=== PATIENT | male | born 1960 | race Hispanic/Latino ===

== ENCOUNTER 2018-02-06 12:03 | Inpatient (IN) | payer OTHER, SELFPAY ==
[2018-02-06 13:49] LABS: #Eosinphils 0.2 thou/uL (0.0-0.7); #Lymphocytes 1.5 thou/uL (1.20-3.40); #Monocytes 0.7 thou/uL (0.11-0.59); #Neutrophils 6.2 thou/uL (1.40-6.50); %Basophils 0.4 % (0.0-1.0); %Eosinophils 1.9 % (0.0-10.0); %Lymphocytes 17.7 % (21.0-51.0); %Monocytes 7.8 % (0.0-10.0); %Neutrophils 72.2 % (42.0-75.0); Hemoglobin 16.4 g/dL (14.0-18.0); Mean Corpuscular HGB CONC 32.6 g/dL (32.0-36.0); Mean Corpuscular Hemoglobin 29.3 pg (27.0-31.0); Mean Platelet Volume 8.5 fL (7.4-10.4); Platelet Count 286 thou/uL (130-400); RBC Distribution Width 12.1 % (11.5-14.5); White Blood Cell (WBC) Count 8.6 thou/uL (4.8-10.8)
[2018-02-06 13:50] LABS: Bilirubin Negative (Negative); Blood, Urine Trace (Negative); Clarity CLEAR (Clear); Glucose, Urine (Dipstick) >=1000 mg/dL (Negative); Leukocyte Small (Negative); Nitrite Negative (Negative); Protein, Urine (Dipstick) 30 mg/dL (Neg-Trace); Specific Gravity, Urine 1.039 (1.002-1.036); Urobilinogen 0.2 mg/dL (0.2-1.0)
[2018-02-06 14:01] LABS: Bacteria/HPF None Seen HPF (None Seen); Hyaline Casts/LPF 0-3 HYALINE CAST LPF (0-3 Hyaline); Squamous Epithelial 0-3 HPF (0-3); WBC/HPF 21-50 HPF (0-3)
[2018-02-06 14:09] LABS: ALT (SGPT) 16 U/L (8-55); AST (SGOT) 13 U/L (5-34); Albumin 4.1 g/dL (3.5-5.0); Alkaline Phosphatase 200 U/L (40-150); Anion Gap 14 mmol/L (10-20); BUN (Urea Nitrogen) 18 mg/dL (8.4-25.7); Bilirubin, Total 0.5 mg/dL (0.2-1.2); Calc. Creatinine Clearance 0 mL/min (70-130); Calcium 9.9 mg/dL (7.8-10.44); Carbon Dioxide 28 mmol/L (22-29); Chloride 96 mmol/L (98-107); Estimated GFR-MDRD 82; Globulin 3.8 g/dL (2.4-3.5); Glucose 468 mg/dL (70-105); Potassium 4.5 mmol/L (3.5-5.1); Protein, Total 7.9 g/dL (6.0-8.3); Sodium 133 mmol/L (136-145)
[2018-02-06] MEDS ORDERED: Piperacillin/Tazobactam 4.5 GM VIAL ONE (14:30)
--- NOTE | 2018-02-06 14:50 | RAD ---
2 VIEWS LEFT TIBIA AND FIBULA: Date: 02/06/18 COMPARISON: None. HISTORY: Left leg pain and swelling. Evaluate for osteomyelitis. Open wound on the proximal tibia. FINDINGS: Two views of the left tibia/fibula shows no evidence of acute fracture or dislocation. There is an an terior wound along the mid portion of the left lower leg. No underlying osseous erosions are seen to suggest osteomyelitis. IMPRESSION: No evidence of osteomyelitis. POS: [facility]
--- NOTE | 2018-02-06 14:52 | RAD ---
3 VIEWS RIGHT FOOT: Date: 02/06/18 COMPARISON: None. HISTORY: Right foot injury with pain. FINDINGS: Three views of the right foot show questionable lucency extending through the distal phalanges of the third, fourth, and fifth toes. This could also be artifactual and represent dermal bárbara for this pa tient. Mild soft tissue swelling is seen. IMPRESSION: Possible distal phalanges fractures of the third, fourth, and fifth toes. Correlate with point tender ness in this location. POS: [facility]IR[facility]
[2018-02-06] MEDS ORDERED: Clindamycin/D5W 900 mg/50 ml Premix Bag ONE (15:40)
[2018-02-06 15:45] LABS: Hemoglobin A1c 12.7 % (4.0-6.0)
[2018-02-06] MEDS ORDERED: Ondansetron ODT 4 MG TAB SL PRN (17:12)
[2018-02-06] MEDS ORDERED: HYDROcodone/Acetaminophen 5/325 mg Tablet PO PRN ×4 (17:12→17:25)
[2018-02-06] MEDS ORDERED: Acetaminophen 325 MG TAB PO PRN ×2 (17:12→17:17)
[2018-02-06] MEDS ORDERED: Ondansetron PF 4 MG/2 ML Vial IVP PRN ×2 (17:12→17:17)
[2018-02-06 17:13] VITALS: BMI 25.9
[2018-02-06] MEDS ORDERED: Adacel (T-DAP) 0.5 ML VIAL IM ONE (17:14)
[2018-02-06] MEDS ORDERED: Calcium Carbonate 500 MG ChewTAB PO PRN (17:17)
[2018-02-06] MEDS ORDERED: Dextrose 50% Abboject 50 ML SYRINGE SLOW IVP PRN (17:17)
[2018-02-06] MEDS ORDERED: Senokot S 8.6-50 MG TAB PO PRN (17:17)
[2018-02-06] MEDS ORDERED: Dextrose 5% in Water 1,000 ML IV PRN (17:17)
[2018-02-06] MEDS ORDERED: Ondansetron ODT 4 MG TAB PO PRN (17:17)
[2018-02-06] MEDS ORDERED: hydrALAZINE 20 MG/ML VIAL SLOW IVP PRN (17:27)
[2018-02-06] MEDS ORDERED: Enalaprilat Dihydrate 1.25 MG/ML VIAL SLOW IVP PRN (17:27)
[2018-02-06] MEDS ORDERED: Aspirin 81 mg Enteric Coated Tablet PO SCH (17:45)
--- NOTE | 2018-02-06 18:01 | HP ---
DATE OF ADMISSION: 02/06/2018 PRIMARY CARE PHYSICIAN: None. CHIEF COMPLAINT: Right foot ulceration. HISTORY OF PRESENT ILLNESS: The patient is a 57-year-old male with no past medical history who prese nted to the emergency room with above complaints. The patient is Nepalese-speaking only and history w as obtained with the help of public health teacher. Approximately 4 weeks ago, the patient was seen at urgent care for a spider bite on his left cao. T he wound gradually increased in size. It is now approximately 2 inch x 2 inch with dry eschar. He d enies any pain around this area. Over the last 4-5 days, the patient noticed discoloration of all the 5 toes of the right foot. The d iscoloration gradually got worse for which he went to the urgent care for evaluation. He denies any pain, fever, chills, night sweats or injuries. In the emergency room, his initial vital signs showed temperature 97.7, respirations 16, pulse of 81, blood pressure 196/99 with O2 saturation of 100% on room air. He received vancomycin, clindamycin, and Zosyn in the emergency room. PAST MEDICAL HISTORY: Reviewed with the patient and none. PAST SURGICAL HISTORY: Reviewed with the patient and none. ALLERGIES: No known drug allergies. CURRENT MEDICATIONS: Reviewed with the patient and none. SOCIAL HISTORY: Patient currently lives at home with his family. The daughter is at the bedside. N o smoking, alcohol or drug use. FAMILY HISTORY: Negative for heart disease. REVIEW OF SYSTEMS: The following complete review of systems was negative, unless otherwise mentioned in the HPI or below: Constitutional: Weight loss or gain, ability to conduct usual activities. Skin: Rash, itching. Eyes: Double vision, pain. ENT/Mouth: Nose bleeding, neck stiffness, pain, tenderness. Cardiovascular: Palpitations, dyspnea on exertion, orthopnea. Respiratory: Shortness of breath, wheezing, cough, hemoptysis, fever or night sweats. Gastrointestinal: Poor appetite, abdominal pain, heartburn, nausea, vomiting, constipation, or diarrhea. Genitourinary: Urgency, frequency, dysuria, nocturia. Musculoskeletal: Pain, swelling. Neurologic/Psychiatric: Anxiety, depression. Allergy/Immunologic: Skin rash, bleeding tendency. PHYSICAL EXAMINATION: VITAL SIGNS: As discussed above. GENERAL: A 57-year-old male, in no apparent distress. HEENT: Head atraumatic, normocephalic. Sclerae are anicteric. Moist mucous membrane. No oral lesi on. NECK: Supple, no JVD, no carotid bruit. LUNGS: Clear to auscultation bilaterally. No wheezing, rales or rhonchi. HEART: S1, S2 present. Regular rate and rhythm. No murmur, rubs, or gallops appreciated. ABDOMEN: Soft, nontender, bowel sounds present. EXTREMITIES: There is diffuse swelling with erythema of the right foot. There was a 3 x 2 cm black discolored area over the right first toe. There is also 2 x 1 cm black discolored tissue over the ri ght fourth toe. There was diffuse maceration of the skin on all the toes of the right foot. There w as no significant drainage or pain on palpation. SKIN: As discussed above. LYMPH NODES: No palpable lymph nodes in the neck. PERIPHERAL VASCULAR: Radial pulses palpable bilaterally. MUSCULOSKELETAL: No joint swelling or tenderness. LABORATORY FINDINGS: CBC showed WBC 8.6 with hemoglobin 16.4, hematocrit 50.3, platelet count 286. ESR of 15. CRP was 9.57, blood glucose of 468. Sodium 133, potassium 4.5, chloride 96, bicarbonate 28, BUN 18, creatinine 0.95. Hemoglobin A1c 12.7. Urinalysis showed 21-50 wbc's without any bacteri a. Telemetry monitoring by my review showed sinus rhythm. X-ray of the fourth and tibia and fibula by m y review was negative for osteomyelitis. IMPRESSION: 1. Right diabetic foot infection. 2. Recent spider bite over the left leg with 4 x 4 cm unstageable ulcer. 3. New onset diabetes mellitus type 2 with A1c 12.7. 4. Hypertension with hypertensive urgency. 5. Dehydration. 6. Urinary tract infection. 7. Elevated inflammatory markers. 8. Hyponatremia. PLAN: The patient will be monitored on the medical floor. We will start him on insulin sliding scal e, vancomycin and Zosyn. We will keep him n.p.o. past midnight for possible surgical debridement. C onsult dietitian for new diabetes. IV fluids. Plan of care was discussed with the patient and the family in detail, they stated understanding.
[2018-02-06] MEDS: Sodium Chloride 0.9% 1,000 ML IV SCH (18:06)
[2018-02-06] MEDS: Insulin Regular 300 UNITS/3 ML VIAL SC PRN ×2 (18:07→21:19)
[2018-02-06 18:09] LABS: Troponin I Less than 0.010 ng/mL (< 0.028)
[2018-02-06] MEDS ORDERED: Lisinopril 10 MG TAB PO SCH (21:00)
[2018-02-06] MEDS ORDERED: Heparin 5,000 UNITS/ML VIAL SC SCH (21:00)
[2018-02-06] MEDS ORDERED: NPH, Human Insulin Isophane 300 UNIT/3 ML VIAL SC SCH (21:00)
[2018-02-06] MEDS: Piperacillin/Tazobactam 3.375 GM in Sodium Chloride 0.9% 100 ML IVPB SCH (21:19)
[2018-02-07] MEDS: Piperacillin/Tazobactam 3.375 GM in Sodium Chloride 0.9% 100 ML IVPB SCH (01:57)
[2018-02-07 02:47] VITALS: TEMP 98.1
[2018-02-07] MEDS: Insulin Regular 300 UNITS/3 ML VIAL SC PRN ×2 (03:38→06:17)
[2018-02-07 04:58] LABS: #Eosinphils 0.3 thou/uL (0.0-0.7); #Lymphocytes 1.4 thou/uL (1.20-3.40); #Monocytes 0.6 thou/uL (0.11-0.59); #Neutrophils 4.2 thou/uL (1.40-6.50); %Basophils 0.4 % (0.0-1.0); %Eosinophils 4.3 % (0.0-10.0); %Lymphocytes 21.5 % (21.0-51.0); %Neutrophils 64.7 % (42.0-75.0); Hemoglobin 14.4 g/dL (14.0-18.0); Mean Corpuscular HGB CONC 34.1 g/dL (32.0-36.0); Mean Corpuscular Hemoglobin 30.4 pg (27.0-31.0); Mean Platelet Volume 8.1 fL (7.4-10.4); Platelet Count 252 thou/uL (130-400); Red Blood Cell (RBC) Count 4.74 mill/uL (4.70-6.10); White Blood Cell (WBC) Count 6.5 thou/uL (4.8-10.8)
[2018-02-07] MEDS ORDERED: Vancomycin HCl 1 GM in Premix Bag 1 BAG IVPB SCH (05:00)
[2018-02-07 05:14] LABS: Anion Gap 11 mmol/L (10-20); BUN (Urea Nitrogen) 18 mg/dL (8.4-25.7); Calc. Creatinine Clearance 107 mL/min (70-130); Calcium 8.8 mg/dL (7.8-10.44); Carbon Dioxide 24 mmol/L (22-29); Chloride 101 mmol/L (98-107); Estimated GFR-MDRD Greater than 90; Glucose 330 mg/dL (70-105); Magnesium 1.8 mg/dL (1.6-2.6); Potassium 4.1 mmol/L (3.5-5.1); Sodium 132 mmol/L (136-145)
[2018-02-07 05:32] VITALS: BP 183/94
[2018-02-07] MEDS: Sodium Chloride 0.9% 1,000 ML IV SCH (06:14)
[2018-02-07] MEDS ORDERED: Saccharomyces boulardii 250 MG CAP PO SCH (09:00)
[2018-02-07] MEDS ORDERED: Aspirin 81 mg Enteric Coated Tablet PO SCH (09:00)
--- NOTE | 2018-02-08 07:20 | DIS ---
The patient left against medical advice on 02/07/2018. BRIEF HOSPITAL COURSE: The patient is a 57-year-old male with no past medical history, who presented to the emergency room with discoloration of the toes of the right foot. Please refer to the history and physical for further details. The patient was admitted to the hospital with a diagnosis of right diabetic foot infection as well as new onset diabetes mellitus, type 2, with A1c of 12.7. He was started on vancomycin, Zosyn, and was kept n.p.o. for surgical evaluation. However, the patient signed against medical advice. He unders tands the risks not limited to life-threatening complications including sepsis, , and losing his limb. He stated understanding. FINAL DIAGNOSES: 1. Right foot diabetic infection. 2. Recent spider bite over the left leg, measuring 4 x 4 cm, unstageable ulcer. 3. New onset diabetes mellitus, type 2 with A1c 12.7. 4. Hypertension with hypertensive urgency. 5. Dehydration. 6. Urinary tract infection. 7. Hyponatremia. 8. Elevated inflammatory markers. The patient also refused insulin during this hospital stay.
== END 2018-02-07 09:38 | disposition left against medical advice (07) | DRG 638 ==
LOC: ERS 12:03 → T4-B 15:38
PROVIDERS: ADMIT Internal Medicine; ATTEND Internal Medicine
DX: E11.628 Type 2 diabetes mellitus with other skin complications (principal); N39.0 Urinary tract infection, site not specified; E87.1 Hypo-osmolality and hyponatremia; L03.115 Cellulitis of right lower limb; E11.621 Type 2 diabetes mellitus with foot ulcer; T63.301D Toxic effect of unspecified spider venom, accidental (unintentional), subsequent encounter; I10 Essential (primary) hypertension; I16.0 Hypertensive urgency; E86.0 Dehydration; E11.65 Type 2 diabetes mellitus with hyperglycemia
CPT/HCPCS: 36415; 36416; 80048; 80053; 81003; 81015; 83036; 83605; 83735; 84484; 85025; 85652; 86140; 87040; 87086; 90715; 93005; 93010; 96365; 96367; 96375; J1644; J1815; J2543; J3370; J3490; J7050

== ENCOUNTER 2024-01-31 05:57 | Inpatient (IN) | payer OTHER, SELFPAY ==
[2024-01-31] MEDS ORDERED: Dextrose 10% in Water 250 ML ONE (06:05)
[2024-01-31 06:10] LABS: #Basophils 0.12 10x3/uL (0.0-0.2); %Basophils 1.3 % (0.0-1.0); %Eosinophils 5.5 % (0.0-10.0); %Lymphocytes 29.9 % (21.0-51.0); %Neutrophils 54.1 % (42.0-75.0); Hematocrit 44.7 % (42.0-52.0); Hemoglobin 14.5 g/dL (14.0-18.0); Mean Corpuscular HGB CONC 32.4 g/dL (32.0-36.0); Mean Corpuscular Hemoglobin 30.9 pg (27.0-31.0); Mean Corpuscular Volume 95.1 fL (78.0-98.0); Mean Platelet Volume 9.9 fL (7.4-10.4); Platelet Count 316 10x3/uL (130-400); RBC Distribution Width 13.9 % (11.5-14.5)
[2024-01-31 06:37] LABS: Troponin I 0.014 ng/mL (< 0.028)
[2024-01-31 06:45] LABS: ALT (SGPT) 18 U/L (8-55); AST (SGOT) 21 U/L (5-34); Albumin 3.6 g/dL (3.4-4.8); Alkaline Phosphatase 102 U/L (40-110); Anion Gap 19 mmol/L (10-20); BUN (Urea Nitrogen) 41 mg/dL (8.4-25.7); Bilirubin, Total 0.3 mg/dL (0.2-1.2); Calc. Creatinine Clearance 0 mL/min (70-130); Calcium 8.7 mg/dL (7.8-10.44); Carbon Dioxide 21 mmol/L (23-31); Chloride 100 mmol/L (98-107); Estimated GFR 9; Globulin 4.1 g/dL (2.4-3.5); Glucose 32 mg/dL (80-115); Potassium 6.4 mmol/L (3.5-5.1); Protein, Total 7.7 g/dL (5.8-8.1); Sodium 134 mmol/L (136-145)
[2024-01-31] MEDS ORDERED: Ondansetron ODT 4 MG TAB PO PRN (08:46)
[2024-01-31] MEDS ORDERED: Guaifenesin DM 100-10/5 ML UDCUP PO PRN (08:52)
[2024-01-31] MEDS ORDERED: Dextrose 50% Abboject 50 ML SYRINGE SLOW IVP PRN (09:54)
[2024-01-31] MEDS ORDERED: Glucagon 1 MG/ML KIT IM PRN (09:54)
[2024-01-31] MEDS ORDERED: Dextrose 5% in Water 1,000 ML IV PRN (09:54)
[2024-01-31 10:35] LABS: Anion Gap 19 mmol/L (10-20); BUN (Urea Nitrogen) 41 mg/dL (8.4-25.7); Calc. Creatinine Clearance 0 mL/min (70-130); Calcium 8.5 mg/dL (7.8-10.44); Carbon Dioxide 21 mmol/L (23-31); Chloride 102 mmol/L (98-107); Estimated GFR 8; Glucose 83 mg/dL (80-115); Potassium 7.6 mmol/L (3.5-5.1); Sodium 134 mmol/L (136-145)
[2024-01-31 10:46] LABS: Hemoglobin A1c 4.4 % (4.0-6.0)
[2024-01-31 10:48] LABS: HBSAB Concentration 605.98 mIU/mL; HBsAg Index 0.32 S/CO (0-0.99); Hep B Core Total Ab NONREACTIVE (NonReactive); Hep B Surf AB REACTIVE (NonReactive); Hep B Surf Ag NONREACTIVE S/CO (NonReactive); Hep C IgG Ab NONREACTIVE S/CO (NonReactive); Hep C Index 0.09 S/CO (0-0.79)
[2024-01-31] MEDS: hydrALAZINE 20 MG/ML VIAL SLOW IVP PRN (16:25)
[2024-01-31 16:30] VITALS: BMI 28.3
[2024-01-31] MEDS: Sodium Chloride 77 MEQ in Dextrose 10% in Water 1,000 ML IV SCH (17:41)
[2024-01-31] MEDS: Acetaminophen/Codeine 30-300mg Tablet PO PRN (21:18)
[2024-02-01 05:53] LABS: #Basophils 0.09 10x3/uL (0.0-0.2); %Basophils 1.2 % (0.0-1.0); %Eosinophils 4.8 % (0.0-10.0); %Lymphocytes 17.1 % (21.0-51.0); %Monocytes 9.1 % (0.0-10.0); %Neutrophils 67.7 % (42.0-75.0); Hematocrit 42.5 % (42.0-52.0); Hemoglobin 13.9 g/dL (14.0-18.0); Mean Corpuscular HGB CONC 32.7 g/dL (32.0-36.0); Mean Corpuscular Hemoglobin 31.3 pg (27.0-31.0); Mean Corpuscular Volume 95.7 fL (78.0-98.0); Platelet Count 283 10x3/uL (130-400); RBC Distribution Width 14.3 % (11.5-14.5); Red Blood Cell (RBC) Count 4.44 mill/uL (4.70-6.10)
[2024-02-01 06:18] LABS: ALT (SGPT) 15 U/L (8-55); AST (SGOT) 16 U/L (5-34); Alkaline Phosphatase 84 U/L (40-110); Anion Gap 15 mmol/L (10-20); BUN (Urea Nitrogen) 27 mg/dL (8.4-25.7); Bilirubin, Total 0.3 mg/dL (0.2-1.2); Calc. Creatinine Clearance 15 mL/min (70-130); Calcium 8.3 mg/dL (7.8-10.44); Carbon Dioxide 23 mmol/L (23-31); Chloride 100 mmol/L (98-107); Estimated GFR 12; Globulin 3.4 g/dL (2.4-3.5); Glucose 122 mg/dL (80-115); Potassium 6.2 mmol/L (3.5-5.1); Protein, Total 6.4 g/dL (5.8-8.1); Sodium 132 mmol/L (136-145)
[2024-02-01] MEDS: Ondansetron PF 4 MG/2 ML Vial IVP PRN (07:24)
[2024-02-01] MEDS: Insulin Regular, Human 100 UNIT/ML 10 ML VIAL IVP SCH (07:42)
[2024-02-01] MEDS: Albuterol 2.5 MG (3 mL) NEB NEB SCH (07:43)
[2024-02-01] MEDS: Dextrose 50% Abboject 50 ML SYRINGE SLOW IVP SCH (07:43)
[2024-02-01] MEDS: LOKELMA 10 GM PACKET PO SCH (07:45)
[2024-02-01 10:29] LABS: Anion Gap 15 mmol/L (10-20); BUN (Urea Nitrogen) 27 mg/dL (8.4-25.7); Calc. Creatinine Clearance 14 mL/min (70-130); Calcium 8.3 mg/dL (7.8-10.44); Carbon Dioxide 22 mmol/L (23-31); Chloride 99 mmol/L (98-107); Estimated GFR 11; Glucose 185 mg/dL (80-115); Potassium 4.8 mmol/L (3.5-5.1); Sodium 131 mmol/L (136-145)
[2024-02-01] MEDS: Promethazine HCl 25 MG in Sodium Chloride 0.9% 50 ML IVPB PRN (11:49)
[2024-02-01] MEDS: Insulin Lispro 100 UNIT/ML 10 ML VIAL SC PRN (11:49)
[2024-02-01] MEDS: NIFEdipine XL 60 MG ER.TAB PO SCH (15:58)
[2024-02-01] MEDS: Dextrose 5 % And 0.9 % NaCl 1,000 ML IV SCH (16:10)
[2024-02-02 08:35] LABS: #Basophils 0.08 10x3/uL (0.0-0.2); %Eosinophils 6.2 % (0.0-10.0); %Lymphocytes 21.5 % (21.0-51.0); %Neutrophils 62.3 % (42.0-75.0); Hematocrit 37.7 % (42.0-52.0); Hemoglobin 12.5 g/dL (14.0-18.0); Mean Corpuscular HGB CONC 33.2 g/dL (32.0-36.0); Mean Corpuscular Hemoglobin 31.1 pg (27.0-31.0); Mean Corpuscular Volume 93.8 fL (78.0-98.0); Mean Platelet Volume 10.1 fL (7.4-10.4); Platelet Count 254 10x3/uL (130-400); Red Blood Cell (RBC) Count 4.02 mill/uL (4.70-6.10)
[2024-02-02 08:56] LABS: Anion Gap 15 mmol/L (10-20); BUN (Urea Nitrogen) 36 mg/dL (8.4-25.7); Calc. Creatinine Clearance 10 mL/min (70-130); Calcium 8.3 mg/dL (7.8-10.44); Carbon Dioxide 23 mmol/L (23-31); Chloride 96 mmol/L (98-107); Estimated GFR 8; Glucose 106 mg/dL (80-115); Potassium 5.7 mmol/L (3.5-5.1); Sodium 128 mmol/L (136-145)
[2024-02-02] MEDS ORDERED: Heparin 10,000 UNITS/ 10 ML VIAL ONE (08:57)
[2024-02-02] MEDS: NIFEdipine XL 60 MG ER.TAB PO SCH (11:53)
[2024-02-02] MEDS: NIFEdipine XL 30 MG ER.TAB PO SCH (18:09)
[2024-02-02] MEDS: Melatonin 3 MG TAB PO PRN (21:03)
[2024-02-03 05:24] LABS: #Basophils 0.08 10x3/uL (0.0-0.2); %Lymphocytes 16.5 % (21.0-51.0); %Monocytes 9.7 % (0.0-10.0); %Neutrophils 64.5 % (42.0-75.0); Hematocrit 37.1 % (42.0-52.0); Hemoglobin 12.2 g/dL (14.0-18.0); Mean Corpuscular HGB CONC 32.9 g/dL (32.0-36.0); Mean Corpuscular Volume 94.2 fL (78.0-98.0); Mean Platelet Volume 9.9 fL (7.4-10.4); Platelet Count 245 10x3/uL (130-400); RBC Distribution Width 13.8 % (11.5-14.5); Red Blood Cell (RBC) Count 3.94 mill/uL (4.70-6.10)
[2024-02-03 05:47] LABS: Anion Gap 16 mmol/L (10-20); BUN (Urea Nitrogen) 30 mg/dL (8.4-25.7); Calc. Creatinine Clearance 11 mL/min (70-130); Calcium 8.3 mg/dL (7.8-10.44); Carbon Dioxide 24 mmol/L (23-31); Chloride 100 mmol/L (98-107); Estimated GFR 9; Glucose 79 mg/dL (80-115); Potassium 5.9 mmol/L (3.5-5.1); Sodium 134 mmol/L (136-145)
[2024-02-03] MEDS ORDERED: Heparin 10,000 UNITS/ 10 ML VIAL ONE (08:50)
[2024-02-03] MEDS ORDERED: Fioricet 325/50/40 mg Tablet PO PRN (08:54)
[2024-02-03] MEDS: NIFEdipine XL 90 MG ER.TAB PO SCH (13:19)
[2024-02-03] MEDS: LOKELMA 10 GM PACKET PO SCH (18:07)
[2024-02-04 05:52] LABS: #Basophils 0.09 10x3/uL (0.0-0.2); %Basophils 1.1 % (0.0-1.0); %Eosinophils 6.1 % (0.0-10.0); %Lymphocytes 15.3 % (21.0-51.0); %Monocytes 10.5 % (0.0-10.0); %Neutrophils 66.8 % (42.0-75.0); Hematocrit 39.2 % (42.0-52.0); Hemoglobin 13.3 g/dL (14.0-18.0); Mean Corpuscular HGB CONC 33.9 g/dL (32.0-36.0); Mean Corpuscular Volume 91.4 fL (78.0-98.0); Mean Platelet Volume 10.3 fL (7.4-10.4); Platelet Count 263 10x3/uL (130-400); RBC Distribution Width 13.9 % (11.5-14.5); Red Blood Cell (RBC) Count 4.29 mill/uL (4.70-6.10)
[2024-02-04 06:24] LABS: Anion Gap 16 mmol/L (10-20); BUN (Urea Nitrogen) 26 mg/dL (8.4-25.7); Calc. Creatinine Clearance 16 mL/min (70-130); Calcium 8.3 mg/dL (7.8-10.44); Carbon Dioxide 26 mmol/L (23-31); Chloride 100 mmol/L (98-107); Estimated GFR 13; Glucose 98 mg/dL (80-115); Potassium 4.8 mmol/L (3.5-5.1); Sodium 137 mmol/L (136-145)
[2024-02-04 08:14] VITALS: BP 188/85
[2024-02-04 08:48] VITALS: TEMP 98.3
== END 2024-02-04 13:15 | disposition home or self-care (01) | DRG 640 ==
LOC: ERS 05:57 → T4-A 08:59 → OBSVTOIN 02-01 10:39
PROVIDERS: ADMIT Internal Medicine; ATTEND Internal Medicine
PROC: 5A1D70Z Performance of Urinary Filtration, Intermittent, Less than 6 Hours Per Day (ICD-10-PCS; principal; 2024-02-01)
DX: E87.5 Hyperkalemia (principal); N18.6 End stage renal disease; I12.0 Hypertensive chronic kidney disease with stage 5 chronic kidney disease or end stage renal disease; E11.649 Type 2 diabetes mellitus with hypoglycemia without coma; E87.1 Hypo-osmolality and hyponatremia; E11.22 Type 2 diabetes mellitus with diabetic chronic kidney disease; Z99.2 Dependence on renal dialysis; Z98.890 Other specified postprocedural states; D63.1 Anemia in chronic kidney disease
CPT/HCPCS: 36415; 36416; 70450; 71045; 80048; 80053; 83036; 84443; 84484; 85025; 86704; 86706; 86803; 87340; 93005; 94640; 96375; 96376; G0378; J0360; J1644; J1815; J2405; J2550; J7042; J7611; J7999

== ENCOUNTER 2024-04-16 08:51 | Inpatient (IN) | payer MEDICARE, SELFPAY ==
[~2024-04-16 08:51] MED LIST: Iopamidol-370 76% 500 ML MDV (1 ML CHARGE) ONE
[2024-04-16] MEDS ORDERED: Dextrose 50% Abboject 50 ML SYRINGE ONE (09:00)
[2024-04-16 09:39] LABS: #Basophils 0.03 10x3/uL (0.0-0.2); %Basophils 0.3 % (0.0-1.0); %Eosinophils 1.1 % (0.0-10.0); %Monocytes 6.6 % (0.0-10.0); %Neutrophils 84.6 % (42.0-75.0); Hematocrit 29.3 % (42.0-52.0); Hemoglobin 9.5 g/dL (14.0-18.0); Mean Corpuscular HGB CONC 32.4 g/dL (32.0-36.0); Mean Corpuscular Hemoglobin 31.6 pg (27.0-31.0); Mean Corpuscular Volume 97.3 fL (78.0-98.0); Mean Platelet Volume 9.8 fL (7.4-10.4); Platelet Count 310 10x3/uL (130-400); RBC Distribution Width 17.6 % (11.5-14.5); Red Blood Cell (RBC) Count 3.01 mill/uL (4.70-6.10)
[2024-04-16 10:10] LABS: ALT (SGPT) 15 U/L (8-55); AST (SGOT) 16 U/L (5-34); Albumin 3.2 g/dL (3.4-4.8); Alkaline Phosphatase 72 U/L (40-110); Anion Gap 27 mmol/L (10-20); BUN (Urea Nitrogen) 57 mg/dL (8.4-25.7); Bilirubin, Total 0.4 mg/dL (0.2-1.2); Calc. Creatinine Clearance 0 mL/min (70-130); Calcium 8.3 mg/dL (7.8-10.44); Carbon Dioxide 14 mmol/L (23-31); Chloride 97 mmol/L (98-107); Estimated GFR 6; Globulin 3.4 g/dL (2.4-3.5); Glucose 76 mg/dL (80-115); Potassium 5.6 mmol/L (3.5-5.1); Protein, Total 6.6 g/dL (5.8-8.1); Sodium 132 mmol/L (136-145)
[2024-04-16 10:26] LABS: Troponin I 0.841 ng/mL (< 0.028)
[2024-04-16] MEDS ORDERED: Ondansetron PF 4 MG/2 ML Vial ONE (10:28)
[2024-04-16] MEDS ORDERED: Glucagon 1 MG/ML KIT ONE (13:52)
[2024-04-16] MEDS ORDERED: Dextrose 5% in Water 1,000 ML IV PRN (14:31)
[2024-04-16] MEDS ORDERED: Bisacodyl 5 MG TAB PO PRN (14:31)
[2024-04-16] MEDS ORDERED: Glucagon 1 MG/ML KIT IM PRN (14:31)
[2024-04-16 14:42] LABS: Troponin I 0.786 ng/mL (< 0.028)
[2024-04-16] MEDS ORDERED: Octreotide Acetate 500 MCG/ML VIAL ONE (16:22)
[2024-04-16 19:02] LABS: Troponin I 0.804 ng/mL (< 0.028)
[2024-04-16] MEDS: Acetaminophen 325 MG TAB PO PRN (22:55)
[2024-04-17 03:31] LABS: #Basophils 0.05 10x3/uL (0.0-0.2); %Basophils 0.7 % (0.0-1.0); %Eosinophils 5.7 % (0.0-10.0); %Lymphocytes 10.3 % (21.0-51.0); %Monocytes 10.6 % (0.0-10.0); %Neutrophils 72.3 % (42.0-75.0); Hematocrit 27.9 % (42.0-52.0); Mean Corpuscular HGB CONC 32.3 g/dL (32.0-36.0); Mean Corpuscular Hemoglobin 30.9 pg (27.0-31.0); Mean Corpuscular Volume 95.9 fL (78.0-98.0); Platelet Count 271 10x3/uL (130-400); RBC Distribution Width 17.8 % (11.5-14.5); Red Blood Cell (RBC) Count 2.91 mill/uL (4.70-6.10)
[2024-04-17 03:51] LABS: Anion Gap 18 mmol/L (10-20); BUN (Urea Nitrogen) 23 mg/dL (8.4-25.7); Calc. Creatinine Clearance 8 mL/min (70-130); Calcium 8.1 mg/dL (7.8-10.44); Carbon Dioxide 22 mmol/L (23-31); Chloride 97 mmol/L (98-107); Estimated GFR 15; Glucose 67 mg/dL (80-115); Sodium 132 mmol/L (136-145)
[2024-04-17] MEDS: Ondansetron PF 4 MG/2 ML Vial IVP PRN (05:35)
[2024-04-17] MEDS: Aspirin 325 MG TAB PO SCH (08:18)
[2024-04-17] MEDS: Dextrose 5 % And 0.9 % NaCl 1,000 ML IV SCH (08:18)
[2024-04-17] MEDS: Dextrose 50% Abboject 50 ML SYRINGE SLOW IVP SCH (08:18)
[2024-04-17] MEDS: Octreotide Acetate 50 MCG/ML AMP SLOW IVP SCH (08:19)
[2024-04-17] MEDS: Aspirin 81 mg Enteric Coated Tablet PO SCH (08:48)
[2024-04-17] MEDS ORDERED: Aspirin 325 mg Enteric Coated Tablet PO SCH (09:00)
[2024-04-17] MEDS: Dextrose 10% in Water 1,000 ML IV SCH (14:45)
[2024-04-17] MEDS: hydrALAZINE 25 MG TAB PO SCH (21:07)
[2024-04-17] MEDS: Metoclopramide HCl 10 MG TAB PO SCH (21:08)
[2024-04-18] MEDS: NIFEdipine XL 60 MG ER.TAB PO SCH (07:14)
[2024-04-18] MEDS: Sevelamer Carbonate 800 MG TAB PO SCH (07:14)
[2024-04-18] MEDS: Isosorbide Dinitrate 20 MG TAB PO SCH (07:15)
[2024-04-18 07:18] VITALS: BMI 24.5
[2024-04-18] MEDS ORDERED: Iopamidol-370 76% 500 ML MDV (1 ML CHARGE) ONE (09:41)
[2024-04-18 10:03] LABS: #Basophils 0.06 10x3/uL (0.0-0.2); %Basophils 0.6 % (0.0-1.0); %Eosinophils 13.4 % (0.0-10.0); %Lymphocytes 10.3 % (21.0-51.0); %Monocytes 8.6 % (0.0-10.0); %Neutrophils 66.8 % (42.0-75.0); Hematocrit 28.9 % (42.0-52.0); Hemoglobin 9.6 g/dL (14.0-18.0); Mean Corpuscular HGB CONC 33.2 g/dL (32.0-36.0); Mean Corpuscular Hemoglobin 31.6 pg (27.0-31.0); Mean Corpuscular Volume 95.1 fL (78.0-98.0); Mean Platelet Volume 10.2 fL (7.4-10.4); Platelet Count 253 10x3/uL (130-400); RBC Distribution Width 17.4 % (11.5-14.5); Red Blood Cell (RBC) Count 3.04 mill/uL (4.70-6.10)
[2024-04-18 10:46] LABS: Anion Gap 17 mmol/L (10-20); BUN (Urea Nitrogen) 41 mg/dL (8.4-25.7); Calc. Creatinine Clearance 11 mL/min (70-130); Calcium 7.6 mg/dL (7.8-10.44); Carbon Dioxide 21 mmol/L (23-31); Chloride 97 mmol/L (98-107); Estimated GFR 8; Glucose 131 mg/dL (80-115); Potassium 4.9 mmol/L (3.5-5.1); Sodium 130 mmol/L (136-145)
[2024-04-19 06:22] LABS: #Basophils 0.06 10x3/uL (0.0-0.2); %Basophils 0.6 % (0.0-1.0); %Eosinophils 14.5 % (0.0-10.0); %Lymphocytes 8.3 % (21.0-51.0); %Neutrophils 67.3 % (42.0-75.0); Hematocrit 27.6 % (42.0-52.0); Hemoglobin 9.3 g/dL (14.0-18.0); Mean Corpuscular HGB CONC 33.7 g/dL (32.0-36.0); Mean Corpuscular Hemoglobin 31.7 pg (27.0-31.0); Mean Corpuscular Volume 94.2 fL (78.0-98.0); Mean Platelet Volume 10.5 fL (7.4-10.4); Platelet Count 252 10x3/uL (130-400); RBC Distribution Width 16.9 % (11.5-14.5); Red Blood Cell (RBC) Count 2.93 mill/uL (4.70-6.10)
[2024-04-19 06:45] LABS: Anion Gap 17 mmol/L (10-20); BUN (Urea Nitrogen) 55 mg/dL (8.4-25.7); Calc. Creatinine Clearance 9 mL/min (70-130); Calcium 7.7 mg/dL (7.8-10.44); Carbon Dioxide 22 mmol/L (23-31); Chloride 97 mmol/L (98-107); Estimated GFR 7; Glucose 67 mg/dL (80-115); Potassium 5.1 mmol/L (3.5-5.1); Sodium 131 mmol/L (136-145)
[2024-04-19] MEDS: Metoprolol Succinate XL 25 MG ER.TAB PO SCH (10:13)
[2024-04-19] MEDS ORDERED: Heparin 10,000 UNITS/ 10 ML VIAL ONE (10:34)
[2024-04-20 04:46] LABS: #Basophils 0.06 10x3/uL (0.0-0.2); %Basophils 0.8 % (0.0-1.0); %Eosinophils 13.6 % (0.0-10.0); %Lymphocytes 12.6 % (21.0-51.0); %Monocytes 11.8 % (0.0-10.0); %Neutrophils 61.1 % (42.0-75.0); Hematocrit 26.1 % (42.0-52.0); Hemoglobin 8.7 g/dL (14.0-18.0); Mean Corpuscular HGB CONC 33.3 g/dL (32.0-36.0); Mean Corpuscular Hemoglobin 31.6 pg (27.0-31.0); Mean Corpuscular Volume 94.9 fL (78.0-98.0); Mean Platelet Volume 10.8 fL (7.4-10.4); Platelet Count 236 10x3/uL (130-400); RBC Distribution Width 17.3 % (11.5-14.5); Red Blood Cell (RBC) Count 2.75 mill/uL (4.70-6.10)
[2024-04-20 05:01] LABS: Anion Gap 15 mmol/L (10-20); BUN (Urea Nitrogen) 27 mg/dL (8.4-25.7); Calc. Creatinine Clearance 16 mL/min (70-130); Calcium 7.5 mg/dL (7.8-10.44); Carbon Dioxide 25 mmol/L (23-31); Chloride 103 mmol/L (98-107); Estimated GFR 13; Glucose 103 mg/dL (80-115); Potassium 4.6 mmol/L (3.5-5.1); Sodium 138 mmol/L (136-145)
[2024-04-21 04:12] LABS: #Basophils 0.06 10x3/uL (0.0-0.2); %Basophils 0.7 % (0.0-1.0); %Lymphocytes 14.2 % (21.0-51.0); %Monocytes 12.2 % (0.0-10.0); %Neutrophils 57.7 % (42.0-75.0); Hematocrit 25.4 % (42.0-52.0); Hemoglobin 8.3 g/dL (14.0-18.0); Mean Corpuscular HGB CONC 32.7 g/dL (32.0-36.0); Mean Corpuscular Hemoglobin 31.7 pg (27.0-31.0); Mean Corpuscular Volume 96.9 fL (78.0-98.0); Mean Platelet Volume 10.7 fL (7.4-10.4); Platelet Count 230 10x3/uL (130-400); RBC Distribution Width 17.3 % (11.5-14.5); Red Blood Cell (RBC) Count 2.62 mill/uL (4.70-6.10)
[2024-04-21 04:34] LABS: Anion Gap 14 mmol/L (10-20); BUN (Urea Nitrogen) 46 mg/dL (8.4-25.7); Calc. Creatinine Clearance 11 mL/min (70-130); Calcium 7.6 mg/dL (7.8-10.44); Carbon Dioxide 26 mmol/L (23-31); Chloride 101 mmol/L (98-107); Estimated GFR 8; Glucose 92 mg/dL (80-115); Potassium 4.4 mmol/L (3.5-5.1); Sodium 137 mmol/L (136-145)
[2024-04-21] MEDS ORDERED: Heparin 10,000 UNITS/ 10 ML VIAL ONE (10:49)
[2024-04-21] MEDS ORDERED: Communication Order-Pharmacy FS PRN (13:15)
[2024-04-21] MEDS: Pantoprazole 40 MG DR.TAB PO SCH (13:32)
[2024-04-21] MEDS: Midodrine HCl 5 MG TAB PO SCH (21:43)
[2024-04-22] MEDS: Sodium Chloride 0.9% 1,000 ML IV SCH (05:02)
[2024-04-22 05:06] LABS: #Basophils 0.07 10x3/uL (0.0-0.2); %Basophils 0.9 % (0.0-1.0); %Eosinophils 16.4 % (0.0-10.0); %Lymphocytes 13.4 % (21.0-51.0); %Monocytes 11.5 % (0.0-10.0); %Neutrophils 57.4 % (42.0-75.0); Hematocrit 25.9 % (42.0-52.0); Hemoglobin 8.3 g/dL (14.0-18.0); Mean Corpuscular Hemoglobin 31.3 pg (27.0-31.0); Mean Corpuscular Volume 97.7 fL (78.0-98.0); Mean Platelet Volume 11.2 fL (7.4-10.4); Platelet Count 219 10x3/uL (130-400); RBC Distribution Width 17.2 % (11.5-14.5); Red Blood Cell (RBC) Count 2.65 mill/uL (4.70-6.10)
[2024-04-22 05:16] LABS: Calc. Creatinine Clearance 15 mL/min (70-130); Estimated GFR 12
[2024-04-22 05:17] LABS: Anion Gap 12 mmol/L (10-20); BUN (Urea Nitrogen) 29 mg/dL (8.4-25.7); Calcium 7.4 mg/dL (7.8-10.44); Carbon Dioxide 27 mmol/L (23-31); Chloride 101 mmol/L (98-107); Glucose 93 mg/dL (80-115); Potassium 4.8 mmol/L (3.5-5.1); Sodium 135 mmol/L (136-145)
[2024-04-22] MEDS ORDERED: Metoprolol Tartrate 5 MG (5 mL) VIAL ONE (10:20)
[2024-04-22] MEDS ORDERED: Nitroglycerin 2% Ointment 1 INCH/1 GM Packet ONE (10:20)
[2024-04-22] MEDS ORDERED: hydrALAZINE 20 MG/ML VIAL ONE (10:24)
[2024-04-22] MEDS ORDERED: Nitroglycerin 0.4 MG TAB (25 Tab Bottle) SL PRN (10:43)
[2024-04-22] MEDS ORDERED: Sodium Chloride 0.9% 200 ML IV PRN (10:43)
[2024-04-22] MEDS ORDERED: Acetaminophen/Codeine 30-300mg Tablet PO PRN ×2 (10:43)
[2024-04-22] MEDS: Pantoprazole 40 MG DR.TAB PO SCH (12:00)
[2024-04-22] MEDS ORDERED: Iopamidol 370 76% 100 ML VIAL ONE (14:03)
[2024-04-22] MEDS ORDERED: Communication Order-Pharmacy FS SCH (17:28)
[2024-04-23 04:55] LABS: #Basophils 0.05 10x3/uL (0.0-0.2); %Basophils 0.6 % (0.0-1.0); %Eosinophils 15.6 % (0.0-10.0); %Lymphocytes 12.6 % (21.0-51.0); %Monocytes 10.9 % (0.0-10.0); %Neutrophils 59.9 % (42.0-75.0); Hematocrit 25.6 % (42.0-52.0); Hemoglobin 8.3 g/dL (14.0-18.0); Mean Corpuscular HGB CONC 32.4 g/dL (32.0-36.0); Mean Corpuscular Volume 95.5 fL (78.0-98.0); Mean Platelet Volume 11.4 fL (7.4-10.4); Platelet Count 220 10x3/uL (130-400); RBC Distribution Width 17.2 % (11.5-14.5); Red Blood Cell (RBC) Count 2.68 mill/uL (4.70-6.10)
[2024-04-23 05:16] LABS: ALT (SGPT) 16 U/L (8-55); AST (SGOT) 16 U/L (5-34); Albumin 2.6 g/dL (3.4-4.8); Alkaline Phosphatase 102 U/L (40-110); Anion Gap 15 mmol/L (10-20); BUN (Urea Nitrogen) 49 mg/dL (8.4-25.7); Bilirubin, Total 0.4 mg/dL (0.2-1.2); Calc. Creatinine Clearance 10 mL/min (70-130); Calcium 7.3 mg/dL (7.8-10.44); Carbon Dioxide 23 mmol/L (23-31); Chloride 101 mmol/L (98-107); Estimated GFR 8; Glucose 117 mg/dL (80-115); Magnesium 2.4 mg/dL (1.6-2.6); Potassium 4.8 mmol/L (3.5-5.1); Protein, Total 5.6 g/dL (5.8-8.1); Sodium 134 mmol/L (136-145)
[2024-04-23] MEDS ORDERED: Heparin 10,000 UNITS/ 10 ML VIAL ONE (10:58)
[2024-04-23] MEDS ORDERED: Artificial Tear Ophth Sol 15 ML BOT EA EYE PRN (15:50)
[2024-04-23] MEDS: Artificial Tear Ophth Sol 15 ML BOT EA EYE PRN (17:33)
[2024-04-23] MEDS: Carvedilol 3.125 MG TAB PO SCH (21:39)
[2024-04-23] MEDS: Heparin 5,000 UNITS/ML VIAL SC SCH (21:39)
[2024-04-24] MEDS: Zolpidem Tartrate 5 MG TAB PO PRN (02:51)
[2024-04-24 04:57] LABS: #Basophils 0.06 10x3/uL (0.0-0.2); %Basophils 0.8 % (0.0-1.0); %Eosinophils 16.5 % (0.0-10.0); %Lymphocytes 11.7 % (21.0-51.0); %Monocytes 11.2 % (0.0-10.0); %Neutrophils 59.4 % (42.0-75.0); Hemoglobin 8.4 g/dL (14.0-18.0); Mean Corpuscular HGB CONC 32.3 g/dL (32.0-36.0); Mean Corpuscular Hemoglobin 31.8 pg (27.0-31.0); Mean Corpuscular Volume 98.5 fL (78.0-98.0); Mean Platelet Volume 11.6 fL (7.4-10.4); Platelet Count 213 10x3/uL (130-400); RBC Distribution Width 16.9 % (11.5-14.5); Red Blood Cell (RBC) Count 2.64 mill/uL (4.70-6.10)
[2024-04-24 05:36] LABS: ALT (SGPT) 25 U/L (8-55); AST (SGOT) 21 U/L (5-34); Albumin 2.6 g/dL (3.4-4.8); Alkaline Phosphatase 129 U/L (40-110); Anion Gap 13 mmol/L (10-20); BUN (Urea Nitrogen) 31 mg/dL (8.4-25.7); Bilirubin, Total 0.4 mg/dL (0.2-1.2); Calc. Creatinine Clearance 15 mL/min (70-130); Calcium 7.6 mg/dL (7.8-10.44); Carbon Dioxide 27 mmol/L (23-31); Chloride 102 mmol/L (98-107); Estimated GFR 12; Globulin 3.3 g/dL (2.4-3.5); Glucose 138 mg/dL (80-115); Magnesium 2.1 mg/dL (1.6-2.6); Potassium 4.3 mmol/L (3.5-5.1); Protein, Total 5.9 g/dL (5.8-8.1); Sodium 138 mmol/L (136-145)
[2024-04-24] MEDS: Melatonin 3 MG TAB PO SCH (20:50)
[2024-04-25 03:47] LABS: #Basophils 0.07 10x3/uL (0.0-0.2); %Basophils 0.9 % (0.0-1.0); %Eosinophils 15.5 % (0.0-10.0); %Lymphocytes 13.8 % (21.0-51.0); %Monocytes 12.2 % (0.0-10.0); %Neutrophils 56.9 % (42.0-75.0); Hematocrit 23.7 % (42.0-52.0); Hemoglobin 7.7 g/dL (14.0-18.0); Mean Corpuscular HGB CONC 32.5 g/dL (32.0-36.0); Mean Corpuscular Hemoglobin 32.1 pg (27.0-31.0); Mean Corpuscular Volume 98.8 fL (78.0-98.0); Mean Platelet Volume 11.7 fL (7.4-10.4); Platelet Count 186 10x3/uL (130-400); RBC Distribution Width 17.3 % (11.5-14.5)
[2024-04-25] MEDS ORDERED: Heparin 10,000 UNITS/ 10 ML VIAL ONE (11:02)
[2024-04-25] MEDS: Losartan 25 MG TAB PO SCH (14:54)
[2024-04-25] MEDS: Albumin 25% 25 GM (100 mL) BOT IVPB SCH (16:25)
[2024-04-26] MEDS ORDERED: Etomidate 40 MG (20 mL) VIAL ONE (06:16)
[2024-04-26] MEDS ORDERED: NOREPINEPHRINE 8 MG/250 ML-D5W 250 ML ONE (06:16)
[2024-04-26] MEDS ORDERED: Milrinone 10 MG/10 ML VIAL ONE (06:16)
[2024-04-26] MEDS ORDERED: Fentanyl 250 MCG/5 ML VIAL ONE (06:17)
[2024-04-26] MEDS ORDERED: Midazolam HCl 2 mg/2 ml Vial ONE (06:17)
[2024-04-26] MEDS ORDERED: EPINEPHrine 1 MG/ML VIAL ONE ×2 (06:28→06:40)
[2024-04-26] MEDS ORDERED: Dexamethasone 4 mg/ml Vial ONE (06:28)
[2024-04-26] MEDS ORDERED: PHENYLEPHRINE-NS 100 MCG/ML 10 ML SYRINGE ONE ×2 (06:29→06:37)
[2024-04-26] MEDS ORDERED: Albumin 5% 0 ML ONE (06:29)
[2024-04-26] MEDS ORDERED: Bupivacaine PF 0.5% 30 ML VIAL ONE (06:29)
[2024-04-26] MEDS ORDERED: ePHEDrine Sulfate 50 MG/10 ML VIAL ONE (06:35)
[2024-04-26] MEDS ORDERED: Sterile Water 10 ML ONE (06:38)
[2024-04-26] MEDS ORDERED: Heparin 10,000 UNITS/1 ML VIAL 30,000 UNITS in Sodium Chloride 0.9% 1,000 ML FS SCH (06:45)
[2024-04-26] MEDS ORDERED: Insulin Regular, Human 100 UNIT/ML 10 ML VIAL ONE (06:56)
[2024-04-26] MEDS ORDERED: CEFAZOLIN 2 GM VIAL ONE (07:17)
[2024-04-26] MEDS ORDERED: CEFAZOLIN 1 GM VIAL SLOW IVP SCH (07:30)
[2024-04-26] MEDS ORDERED: CEFAZOLIN 2 GM in Sodium Chloride 0.9% 100 ML IVPB SCH (07:30)
[2024-04-26] MEDS ORDERED: Albuterol 2.5 MG (3 mL) NEB ONE (07:37)
[2024-04-26] MEDS: Lorazepam 2 MG/ML VIAL SLOW IVP PRN (08:10)
[2024-04-26 08:13] LABS: Actual Bicarbonate (HCO3a) 25.9 mEq/L (22-28); Base Excess (BEa) -2.9 mEq/L (-2.0 to +3.0); Calcium, Ionized (arterial) 1.09 mmol/L (1.12-1.30); Carboxyhemoglobin (COHb) 0.8 gm% (0.0-3.0); Hematocrit-ABG 34 % (42.0-52.0); Hemoglobin (Hb) 11.5 g/dL (14.0-18.0); O2 Tension (PaO2), arterial 355.4 mmHg (> 80.0); Potassium - ABG Lab 5.29 mmol/L (3.70-5.30); pH, Arterial 7.213 (7.35-7.45)
[2024-04-26 08:15] LABS: CO2 Tension 65.8 mmHg (35.0-45.0)
[2024-04-26] MEDS: Vecuronium 10 MG VIAL IV SCH (08:15)
[2024-04-26 08:16] LABS: Puncture Site Arterial Line
[2024-04-26] MEDS: Propofol 1,000 MG/100 ML VIAL IV PRN (08:20)
[2024-04-26 09:01] LABS: %Basophils 0.9 % (0.0-1.0); %Eosinophils 11.9 % (0.0-10.0); %Lymphocytes 6.3 % (21.0-51.0); %Monocytes 7.4 % (0.0-10.0); Hematocrit 30.5 % (42.0-52.0); Hemoglobin 9.7 g/dL (14.0-18.0); Mean Corpuscular HGB CONC 31.8 g/dL (32.0-36.0); Mean Corpuscular Hemoglobin 31.3 pg (27.0-31.0); Mean Corpuscular Volume 98.4 fL (78.0-98.0); Mean Platelet Volume 11.2 fL (7.4-10.4); Platelet Count 202 10x3/uL (130-400)
[2024-04-26 09:15] LABS: Anion Gap 16 mmol/L (10-20); BUN (Urea Nitrogen) 30 mg/dL (8.4-25.7); Calc. Creatinine Clearance 16 mL/min (70-130); Calcium 7.6 mg/dL (7.8-10.44); Carbon Dioxide 25 mmol/L (23-31); Chloride 104 mmol/L (98-107); Estimated GFR 12; Glucose 152 mg/dL (80-115); Potassium 5.1 mmol/L (3.5-5.1); Sodium 140 mmol/L (136-145)
[2024-04-26] MEDS ORDERED: Heparin 10,000 UNITS/ 10 ML VIAL ONE (09:47)
[2024-04-26] MEDS: Vecuronium 10 MG VIAL ONE (10:08)
[2024-04-26] MEDS: Propofol 1,000 MG/100 ML VIAL IV ONE (10:08)
[2024-04-26] MEDS: Lorazepam 2 MG/ML VIAL ONE (10:09)
[2024-04-26] MEDS ORDERED: Morphine 2 MG/ML VIAL SLOW IVP PRN ×2 (10:15→18:15)
[2024-04-26] MEDS ORDERED: Propofol BOLUS 1,000 MG/100 ML VIAL IV PRN ×2 (10:15→18:15)
[2024-04-26] MEDS ORDERED: DISCONTINUE PREVIOUS NARCOTIC PAIN MEDICATIONS AND BENZODIAZEPINES FS SCH ×2 (10:15→18:15)
[2024-04-26] MEDS ORDERED: Fentanyl BOLUS 250 ML IVPB PRN ×2 (10:15→18:15)
[2024-04-26] MEDS: Fentanyl CADD 100 ML IV SCH (10:53)
[2024-04-26] MEDS: Albumin 25% 25 GM (100 mL) BOT IVPB SCH (14:26)
[2024-04-26] MEDS ORDERED: Glucagon 1 MG/ML KIT IM PRN (17:53)
[2024-04-26] MEDS ORDERED: Dextrose 5% in Water 1,000 ML IV PRN (17:53)
[2024-04-26] MEDS ORDERED: Ipratropium/Albuterol 3 ML NEB NEB PRN (17:58)
[2024-04-26] MEDS ORDERED: Acetaminophen 650 MG Suppository PR PRN (17:58)
[2024-04-26] MEDS ORDERED: Ventilator Sedation Protocol 1 EACH FS SCH (18:00)
[2024-04-26] MEDS ORDERED: Acetaminophen 650 MG/20.3 ML UDCUP PO PRN (18:05)
[2024-04-26] MEDS: Dextrose 50% Abboject 50 ML SYRINGE SLOW IVP PRN (18:06)
[2024-04-26] MEDS: Dextrose 5 % And 0.9 % NaCl 1,000 ML IV SCH (18:12)
[2024-04-26] MEDS ORDERED: Lorazepam 2 MG/ML VIAL SLOW IVP PRN (18:15)
[2024-04-26] MEDS ORDERED: Propofol 1,000 MG/100 ML VIAL IV PRN (18:15)
[2024-04-26] MEDS ORDERED: Fentanyl CADD 100 ML IV SCH (18:15)
[2024-04-26] MEDS: Ipratropium/Albuterol 3 ML NEB NEB SCH (18:21)
[2024-04-26] MEDS: hydrALAZINE 20 MG/ML VIAL SLOW IVP PRN (18:32)
[2024-04-26] MEDS: Famotidine 20 MG TAB PER TUBE SCH (20:17)
[2024-04-26] MEDS: Famotidine/PF 20 mg/2ml Vial SLOW IVP SCH (20:17)
[2024-04-26] MEDS: Heparin 5,000 UNITS/ML VIAL SC SCH (20:18)
[2024-04-27] MEDS: hydrALAZINE 25 MG TAB PO SCH (02:05)
[2024-04-27] MEDS: Isosorbide Dinitrate 5 MG TAB PO SCH (02:05)
[2024-04-27 04:33] LABS: #Basophils 0.07 10x3/uL (0.0-0.2); %Basophils 0.9 % (0.0-1.0); %Eosinophils 14.2 % (0.0-10.0); %Lymphocytes 11.4 % (21.0-51.0); %Monocytes 12.7 % (0.0-10.0); %Neutrophils 60.5 % (42.0-75.0); Hematocrit 28.1 % (42.0-52.0); Hemoglobin 9.2 g/dL (14.0-18.0); Mean Corpuscular HGB CONC 32.7 g/dL (32.0-36.0); Mean Corpuscular Hemoglobin 31.4 pg (27.0-31.0); Mean Corpuscular Volume 95.9 fL (78.0-98.0); Mean Platelet Volume 11.3 fL (7.4-10.4); Platelet Count 201 10x3/uL (130-400); RBC Distribution Width 17.5 % (11.5-14.5); Red Blood Cell (RBC) Count 2.93 mill/uL (4.70-6.10)
[2024-04-27 05:12] LABS: Anion Gap 11 mmol/L (10-20); BUN (Urea Nitrogen) 20 mg/dL (8.4-25.7); Calc. Creatinine Clearance 22 mL/min (70-130); Calcium 8.3 mg/dL (7.8-10.44); Carbon Dioxide 27 mmol/L (23-31); Chloride 103 mmol/L (98-107); Estimated GFR 17; Glucose 79 mg/dL (80-115); Potassium 4.3 mmol/L (3.5-5.1); Sodium 137 mmol/L (136-145)
[2024-04-27 07:36] LABS: Actual Bicarbonate (HCO3a) 26.5 mEq/L (22-28); Base Excess (BEa) 4.6 mEq/L (-2.0 to +3.0); CO2 Tension 29.8 mmHg (35.0-45.0); Calcium, Ionized (arterial) 1.07 mmol/L (1.12-1.30); Carboxyhemoglobin (COHb) 0.5 gm% (0.0-3.0); Hematocrit-ABG 30 % (42.0-52.0); Hemoglobin (Hb) 10.1 g/dL (14.0-18.0); O2 Tension (PaO2), arterial 141.2 mmHg (> 80.0); Potassium - ABG Lab 4.38 mmol/L (3.70-5.30); pH, Arterial 7.567 (7.35-7.45)
[2024-04-27 08:23] LABS: Puncture Site Arterial Line
[2024-04-27] MEDS: Aspirin 81 mg Enteric Coated Tablet PO SCH (09:07)
[2024-04-27] MEDS: Aspirin Chewable 81 MG TAB PER TUBE SCH (09:12)
[2024-04-27] MEDS ORDERED: Dexmedetomidine In 0.9 % NaCl 100 ML IV SCH (10:00)
[2024-04-27] MEDS ORDERED: Heparin 25,000 units/D5W 500 ML IVPB SCH (10:15)
[2024-04-27] MEDS ORDERED: Heparin 10,000 UNITS/ 10 ML VIAL SLOW IVP SCH (10:15)
[2024-04-27 10:46] LABS: Hematocrit 29.2 % (42.0-52.0); Hemoglobin 9.6 g/dL (14.0-18.0); Platelet Count 199 10x3/uL (130-400)
[2024-04-27] MEDS: Ondansetron PF 4 MG/2 ML Vial IVP PRN (11:41)
[2024-04-27] MEDS: Heparin 25,000 units/D5W 500 ML IV SCH (11:42)
[2024-04-27] MEDS: Heparin 10,000 UNITS/ 10 ML VIAL SLOW IVP SCH (11:42)
[2024-04-27 18:20] LABS: PTT 124.2 sec (22.9-36.1)
[2024-04-27] MEDS ORDERED: Famotidine 40 MG/5 ML Oral Suspension PER TUBE SCH (21:00)
[2024-04-28 04:07] LABS: #Basophils 0.05 10x3/uL (0.0-0.2); %Basophils 0.6 % (0.0-1.0); %Eosinophils 11.1 % (0.0-10.0); %Lymphocytes 9.3 % (21.0-51.0); %Monocytes 9.9 % (0.0-10.0); %Neutrophils 68.8 % (42.0-75.0); Hematocrit 25.3 % (42.0-52.0); Hemoglobin 8.2 g/dL (14.0-18.0); Mean Corpuscular HGB CONC 32.4 g/dL (32.0-36.0); Mean Corpuscular Hemoglobin 31.8 pg (27.0-31.0); Mean Corpuscular Volume 98.1 fL (78.0-98.0); Mean Platelet Volume 11.3 fL (7.4-10.4); Platelet Count 193 10x3/uL (130-400); RBC Distribution Width 16.9 % (11.5-14.5); Red Blood Cell (RBC) Count 2.58 mill/uL (4.70-6.10)
[2024-04-28 05:38] LABS: Anion Gap 16 mmol/L (10-20); BUN (Urea Nitrogen) 40 mg/dL (8.4-25.7); Calc. Creatinine Clearance 13 mL/min (70-130); Carbon Dioxide 26 mmol/L (23-31); Chloride 102 mmol/L (98-107); Estimated GFR 10; Glucose 146 mg/dL (80-115); Potassium 4.6 mmol/L (3.5-5.1); Sodium 139 mmol/L (136-145)
[2024-04-28] MEDS ORDERED: Aspirin Chewable 81 MG TAB PO SCH (09:00)
[2024-04-28] MEDS ORDERED: Heparin 10,000 UNITS/ 10 ML VIAL ONE (09:37)
[2024-04-28 11:30] LABS: PTT 159.4 sec (22.9-36.1)
[2024-04-28] MEDS: Isosorbide Dinitrate 5 MG TAB PO SCH (18:34)
[2024-04-28] MEDS: Famotidine 20 MG TAB PER TUBE SCH (20:05)
[2024-04-28] MEDS: Famotidine/PF 20 mg/2ml Vial SLOW IVP SCH (20:05)
[2024-04-28] MEDS: Docusate 100 MG CAP PO SCH (20:05)
[2024-04-29 05:32] LABS: #Basophils 0.06 10x3/uL (0.0-0.2); %Basophils 0.8 % (0.0-1.0); %Eosinophils 16.4 % (0.0-10.0); %Lymphocytes 13.8 % (21.0-51.0); %Monocytes 11.4 % (0.0-10.0); %Neutrophils 57.1 % (42.0-75.0); Hematocrit 25.2 % (42.0-52.0); Hemoglobin 8.3 g/dL (14.0-18.0); Mean Corpuscular HGB CONC 32.9 g/dL (32.0-36.0); Mean Corpuscular Hemoglobin 31.7 pg (27.0-31.0); Mean Corpuscular Volume 96.2 fL (78.0-98.0); Mean Platelet Volume 11.1 fL (7.4-10.4); Platelet Count 199 10x3/uL (130-400); RBC Distribution Width 16.3 % (11.5-14.5); Red Blood Cell (RBC) Count 2.62 mill/uL (4.70-6.10)
[2024-04-29 05:42] LABS: Anion Gap 14 mmol/L (10-20); BUN (Urea Nitrogen) 26 mg/dL (8.4-25.7); Calc. Creatinine Clearance 16 mL/min (70-130); Calcium 7.7 mg/dL (7.8-10.44); Carbon Dioxide 27 mmol/L (23-31); Chloride 103 mmol/L (98-107); Estimated GFR 13; Glucose 147 mg/dL (80-115); Potassium 4.1 mmol/L (3.5-5.1); Sodium 140 mmol/L (136-145)
[2024-04-29] MEDS: Fluticasone Propionate Nasal Spray 16 gm Bottle NASAL SCH (08:30)
[2024-04-29] MEDS ORDERED: Albumin 25% 25 GM (100 mL) BOT IVPB SCH (10:00)
[2024-04-29 11:01] LABS: Hematocrit 25.5 % (42.0-52.0); Hemoglobin 8.4 g/dL (14.0-18.0); Platelet Count 197 10x3/uL (130-400)
[2024-04-29] MEDS: Isosorbide Dinitrate 20 MG TAB PO SCH (11:15)
[2024-04-29] MEDS: Amlodipine 5 MG TAB PO SCH (11:16)
[2024-04-29] MEDS: Senokot S 8.6-50 MG TAB PO PRN (21:05)
[2024-04-29] MEDS: Loratadine 10 MG TAB PO SCH (21:05)
[2024-04-30 05:03] LABS: #Basophils 0.05 10x3/uL (0.0-0.2); %Basophils 0.6 % (0.0-1.0); %Eosinophils 14.2 % (0.0-10.0); %Lymphocytes 13.4 % (21.0-51.0); %Monocytes 8.7 % (0.0-10.0); %Neutrophils 62.5 % (42.0-75.0); Hematocrit 24.8 % (42.0-52.0); Hemoglobin 8.3 g/dL (14.0-18.0); Mean Corpuscular HGB CONC 33.5 g/dL (32.0-36.0); Mean Corpuscular Hemoglobin 31.7 pg (27.0-31.0); Mean Corpuscular Volume 94.7 fL (78.0-98.0); Mean Platelet Volume 11.2 fL (7.4-10.4); Platelet Count 210 10x3/uL (130-400); RBC Distribution Width 16.1 % (11.5-14.5); Red Blood Cell (RBC) Count 2.62 mill/uL (4.70-6.10)
[2024-04-30 05:33] LABS: Anion Gap 18 mmol/L (10-20); BUN (Urea Nitrogen) 51 mg/dL (8.4-25.7); Calc. Creatinine Clearance 10 mL/min (70-130); Calcium 7.9 mg/dL (7.8-10.44); Carbon Dioxide 24 mmol/L (23-31); Chloride 102 mmol/L (98-107); Estimated GFR 8; Glucose 164 mg/dL (80-115); Potassium 4.5 mmol/L (3.5-5.1); Sodium 139 mmol/L (136-145)
[2024-04-30] MEDS: Amlodipine 5 MG TAB PO SCH (08:06)
[2024-04-30] MEDS: EPOETIN ALFA-EPBX (ESRD) 10,000 UNITS/ML VIAL IVP SCH (12:00)
[2024-04-30] MEDS ORDERED: Heparin 10,000 UNITS/ 10 ML VIAL ONE (12:31)
[2024-04-30 13:31] LABS: PTT 128.8 sec (22.9-36.1)
[2024-05-01 05:21] LABS: Hematocrit 25.7 % (42.0-52.0); Hemoglobin 8.5 g/dL (14.0-18.0); Platelet Count 224 10x3/uL (130-400)
[2024-05-01 05:37] LABS: Anion Gap 14 mmol/L (10-20); BUN (Urea Nitrogen) 29 mg/dL (8.4-25.7); Calc. Creatinine Clearance 15 mL/min (70-130); Calcium 8.1 mg/dL (7.8-10.44); Carbon Dioxide 27 mmol/L (23-31); Chloride 101 mmol/L (98-107); Estimated GFR 12; Glucose 132 mg/dL (80-115); Potassium 4.2 mmol/L (3.5-5.1); Sodium 138 mmol/L (136-145)
[2024-05-01] MEDS: Polyethylene Glycol 3350 17 GM Packet PO PRN (09:18)
[2024-05-01] MEDS ORDERED: Bisacodyl 5 MG TAB PO PRN (09:27)
[2024-05-01] MEDS ORDERED: Bisacodyl 10 MG SUPP PR PRN (09:27)
[2024-05-01] MEDS ORDERED: Milk Of Magnesia 30 ML UDCUP PO PRN (09:27)
[2024-05-02] MEDS: Artificial Tear Ophth Sol 15 ML BOT EA EYE PRN (03:45)
[2024-05-02 04:42] LABS: Hematocrit 24.4 % (42.0-52.0)
[2024-05-02 04:59] LABS: Anion Gap 18 mmol/L (10-20); BUN (Urea Nitrogen) 52 mg/dL (8.4-25.7); Calc. Creatinine Clearance 10 mL/min (70-130); Carbon Dioxide 26 mmol/L (23-31); Chloride 100 mmol/L (98-107); Estimated GFR 8; Glucose 129 mg/dL (80-115); Magnesium 2.1 mg/dL (1.6-2.6); Potassium 4.6 mmol/L (3.5-5.1); Sodium 139 mmol/L (136-145)
[2024-05-02] MEDS ORDERED: Communication Order-Pharmacy FS SCH (09:16)
[2024-05-02] MEDS ORDERED: Heparin 10,000 UNITS/ 10 ML VIAL ONE (12:35)
[2024-05-03 04:39] LABS: #Basophils 0.07 10x3/uL (0.0-0.2); %Basophils 1.1 % (0.0-1.0); %Eosinophils 17.9 % (0.0-10.0); %Lymphocytes 13.4 % (21.0-51.0); %Monocytes 9.7 % (0.0-10.0); Hematocrit 25.5 % (42.0-52.0); Hemoglobin 8.4 g/dL (14.0-18.0); Mean Corpuscular HGB CONC 32.9 g/dL (32.0-36.0); Mean Corpuscular Hemoglobin 32.1 pg (27.0-31.0); Mean Corpuscular Volume 97.3 fL (78.0-98.0); Mean Platelet Volume 10.8 fL (7.4-10.4); Platelet Count 229 10x3/uL (130-400); RBC Distribution Width 15.9 % (11.5-14.5); Red Blood Cell (RBC) Count 2.62 mill/uL (4.70-6.10)
[2024-05-03 05:02] LABS: Anion Gap 15 mmol/L (10-20); BUN (Urea Nitrogen) 34 mg/dL (8.4-25.7); Calc. Creatinine Clearance 15 mL/min (70-130); Calcium 8.2 mg/dL (7.8-10.44); Carbon Dioxide 27 mmol/L (23-31); Chloride 102 mmol/L (98-107); Estimated GFR 12; Glucose 154 mg/dL (80-115); Potassium 4.5 mmol/L (3.5-5.1); Sodium 139 mmol/L (136-145)
[2024-05-03] MEDS ORDERED: EPINEPHrine 1 MG/ML VIAL ONE ×2 (06:34→07:30)
[2024-05-03] MEDS ORDERED: PHENYLEPHRINE-NS 100 MCG/ML 10 ML SYRINGE ONE (06:34)
[2024-05-03] MEDS ORDERED: Bupivacaine PF 0.5% 30 ML VIAL ONE (06:35)
[2024-05-03] MEDS ORDERED: Albumin 5% 500 ML ONE (06:35)
[2024-05-03] MEDS ORDERED: PROPOFOL 20 ML ONE (06:46)
[2024-05-03] MEDS ORDERED: Vecuronium 10 MG VIAL ONE (06:46)
[2024-05-03] MEDS ORDERED: fentaNYL PF 100 MCG/2 ML SYRINGE ONE (06:46)
[2024-05-03] MEDS ORDERED: SUCCINYLCHOLINE/SOD CL,ISO/PF 200 MG/10 ML SYRINGE FS ONE (06:46)
[2024-05-03] MEDS ORDERED: Midazolam HCl 2 mg/2 ml Vial ONE (06:46)
[2024-05-03] MEDS ORDERED: Lidocaine 2% PF 5 ML VIAL ONE (06:46)
[2024-05-03] MEDS ORDERED: Heparin 10,000 UNITS/1 ML VIAL 30,000 UNITS in Sodium Chloride 0.9% 1,000 ML FS SCH (07:00)
[2024-05-03] MEDS ORDERED: Milrinone 10 MG/10 ML VIAL ONE (07:30)
[2024-05-03] MEDS ORDERED: Etomidate 40 MG (20 mL) VIAL ONE (07:31)
[2024-05-03] MEDS ORDERED: Lidocaine 1% PF 5 ML VIAL ONE (07:44)
[2024-05-03] MEDS ORDERED: CEFAZOLIN 2 GM VIAL ONE (07:52)
[2024-05-03] MEDS ORDERED: Papaverine 60 MG/2 ML VIAL ONE (07:57)
[2024-05-03] MEDS ORDERED: Aminocaproic Acid 5 GM/20 ML VIAL ONE (07:57)
[2024-05-03] MEDS ORDERED: Calcium Chloride 1 GM/10 ML Abboject SYRINGE ONE (07:57)
[2024-05-03] MEDS ORDERED: Lidocaine 2% PF 100 mg/5 ml Syringe ONE (07:57)
[2024-05-03] MEDS ORDERED: Magnesium 5 GM/10 ML VIAL ONE (07:57)
[2024-05-03] MEDS ORDERED: Mannitol 12.5 GM/50 ML ONE (07:57)
[2024-05-03] MEDS ORDERED: Vancomycin 1 GM VIAL ONE (07:57)
[2024-05-03] MEDS ORDERED: Protamine Sulfate 250 MG/25 ML VIAL ONE (07:57)
[2024-05-03] MEDS ORDERED: Potassium Chloride 60 mEq (30 mL) VIAL ONE (07:57)
[2024-05-03] MEDS ORDERED: Cardioplegic Soln 1,000 ML BAG ONE (07:57)
[2024-05-03] MEDS ORDERED: Sodium Bicarb 50 mEq/50 ML VIAL ONE (07:57)
[2024-05-03] MEDS ORDERED: Heparin 5,000 UNITS/ML VIAL ONE (07:57)
[2024-05-03] MEDS ORDERED: Heparin 30,000 units/30 ml VIAL ONE (07:57)
[2024-05-03] MEDS ORDERED: Nitroglycerin 50 MG/250 ML BOT ONE (07:57)
[2024-05-03] MEDS ORDERED: Heparin 10,000 UNITS/ 10 ML VIAL ONE ×2 (09:23→09:52)
[2024-05-03] MEDS ORDERED: ePHEDrine Sulfate 50 MG/10 ML VIAL ONE (09:27)
[2024-05-03] MEDS ORDERED: Rocuronium Bromide 10 MG/ML (10ML VIAL) ONE (09:33)
[2024-05-03] MEDS ORDERED: Guaifenesin DM 100-10/5 ML UDCUP PO PRN (12:06)
[2024-05-03] MEDS ORDERED: HYDROcodone/Acetaminophen 5/325 mg Tablet PO PRN (12:06)
[2024-05-03] MEDS ORDERED: Bisacodyl 5 MG TAB PO PRN (12:06)
[2024-05-03] MEDS ORDERED: Mag-Al 1200 mg/1200 mg/30 ML UDCUP PO PRN (12:06)
[2024-05-03] MEDS ORDERED: Bisacodyl 10 MG SUPP PR PRN (12:06)
[2024-05-03] MEDS ORDERED: Albumin 5% 12.5 GM (250 mL) BOT IVPB PRN (12:06)
[2024-05-03] MEDS ORDERED: Morphine 2 MG/ML VIAL SLOW IVP PRN (12:06)
[2024-05-03] MEDS ORDERED: Ipratropium/Albuterol 3 ML NEB NEB PRN (12:06)
[2024-05-03] MEDS ORDERED: NOREPINEPHRINE 8 MG/250 ML-D5W 250 ML IVPB PRN (12:06)
[2024-05-03] MEDS ORDERED: Potassium Chloride 20 MEQ (100 mL) BAG IVPB PRN (12:06)
[2024-05-03 12:24] LABS: Actual Bicarbonate (HCO3a) 23.9 mEq/L (22-28); Base Excess (BEa) -0.6 mEq/L (-2.0 to +3.0); CO2 Tension 38.8 mmHg (35.0-45.0); Calcium, Ionized (arterial) 1.07 mmol/L (1.12-1.30); Carboxyhemoglobin (COHb) 0.6 gm% (0.0-3.0); Hematocrit-ABG 32 % (42.0-52.0); O2 Tension (PaO2), arterial 157.6 mmHg (> 80.0); Potassium - ABG Lab 5.55 mmol/L (3.70-5.30); pH, Arterial 7.407 (7.35-7.45)
[2024-05-03] MEDS ORDERED: Dextrose 50% Abboject 50 ML SYRINGE SLOW IVP PRN (12:30)
[2024-05-03] MEDS ORDERED: Dextrose 5% in Water 1,000 ML IV PRN (12:30)
[2024-05-03] MEDS ORDERED: Glucagon 1 MG/ML KIT SC PRN (12:30)
[2024-05-03 12:33] LABS: Puncture Site Arterial Line
[2024-05-03] MEDS: INSULIN REGULAR IN 0.9 % NACL 100 UNITS in Premix 1 BAG IVPB SCH (12:37)
[2024-05-03] MEDS: Sodium Chloride 0.9% 1,000 ML IV SCH (12:41)
[2024-05-03 12:45] LABS: INR-International Normal Ratio 1.2; Prothrombin Time 15.7 sec (12.0-14.7)
[2024-05-03 12:46] LABS: PTT 35.8 sec (22.9-36.1)
[2024-05-03] MEDS: fentaNYL 50 mcg/mL 1 mL Vial SLOW IVP PRN ×2 (12:50→16:42)
[2024-05-03] MEDS: Magnesium 2 GM/50 ML(in water) 2 GM in Premix 1 BAG IVPB SCH (12:54)
[2024-05-03] MEDS: Ketorolac Tromethamine 30 MG (1 mL) VIAL IVP SCH (12:54)
[2024-05-03 12:55] LABS: Anion Gap 17 mmol/L (10-20); BUN (Urea Nitrogen) 40 mg/dL (8.4-25.7); Calc. Creatinine Clearance 15 mL/min (70-130); Calcium 7.7 mg/dL (7.8-10.44); Carbon Dioxide 24 mmol/L (23-31); Chloride 107 mmol/L (98-107); Estimated GFR 12; Glucose 206 mg/dL (80-115); Potassium 5.8 mmol/L (3.5-5.1); Sodium 142 mmol/L (136-145)
[2024-05-03] MEDS: Post-Op Insulin Drip Protocol IVPB ONE (12:57)
[2024-05-03 12:58] LABS: Hematocrit 30.9 % (42.0-52.0); Hemoglobin 10.3 g/dL (14.0-18.0); Mean Corpuscular HGB CONC 33.3 g/dL (32.0-36.0); Mean Corpuscular Hemoglobin 30.4 pg (27.0-31.0); Mean Corpuscular Volume 91.2 fL (78.0-98.0); Mean Platelet Volume 10.9 fL (7.4-10.4); Platelet Count 197 10x3/uL (130-400); Red Blood Cell (RBC) Count 3.39 mill/uL (4.70-6.10)
[2024-05-03 13:07] LABS: #Basophils 0.07 10x3/uL (0.0-0.2); %Basophils 0.6 % (0.0-1.0); %Eosinophils 8.5 % (0.0-10.0); %Lymphocytes 6.8 % (21.0-51.0); %Monocytes 5.7 % (0.0-10.0); %Neutrophils 74.5 % (42.0-75.0)
[2024-05-03] MEDS: Albumin 5% 12.5 GM (250 mL) BOT IVPB PRN (13:13)
[2024-05-03] MEDS: Acetaminophen 325 MG TAB PO SCH (14:01)
[2024-05-03] MEDS: Aspirin Chewable 81 MG TAB PO SCH (16:42)
[2024-05-03 18:07] LABS: Hematocrit 26.9 % (42.0-52.0)
[2024-05-03] MEDS: niCARdipine 25 MG in Sodium Chloride 0.9% 250 ML 250 ML IVPB SCH (18:41)
[2024-05-03] MEDS: CEFAZOLIN 2 GM in Sodium Chloride 0.9% 100 ML IVPB SCH (20:18)
[2024-05-03] MEDS: Famotidine/PF 20 mg/2ml Vial SLOW IVP SCH (22:25)
[2024-05-03 22:27] LABS: Potassium 4.7 mmol/L (3.5-5.1)
[2024-05-03] MEDS: Atorvastatin Calcium 40 MG TAB PO SCH (22:30)
[2024-05-03] MEDS: Ondansetron PF 4 MG/2 ML Vial IVP PRN (23:35)
[2024-05-04 04:34] LABS: #Basophils 0.06 10x3/uL (0.0-0.2); %Basophils 0.8 % (0.0-1.0); %Lymphocytes 7.9 % (21.0-51.0); %Neutrophils 72.8 % (42.0-75.0); Hematocrit 27.7 % (42.0-52.0); Hemoglobin 9.1 g/dL (14.0-18.0); Mean Corpuscular HGB CONC 32.9 g/dL (32.0-36.0); Mean Corpuscular Hemoglobin 29.9 pg (27.0-31.0); Mean Corpuscular Volume 91.1 fL (78.0-98.0); Platelet Count 192 10x3/uL (130-400); RBC Distribution Width 18.3 % (11.5-14.5); Red Blood Cell (RBC) Count 3.04 mill/uL (4.70-6.10)
[2024-05-04 05:06] LABS: Anion Gap 15 mmol/L (10-20); BUN (Urea Nitrogen) 20 mg/dL (8.4-25.7); Calc. Creatinine Clearance 22 mL/min (70-130); Calcium 7.8 mg/dL (7.8-10.44); Carbon Dioxide 26 mmol/L (23-31); Chloride 106 mmol/L (98-107); Estimated GFR 19; Glucose 120 mg/dL (80-115); Potassium 4.6 mmol/L (3.5-5.1); Sodium 142 mmol/L (136-145)
[2024-05-04] MEDS: Magnesium 2 GM/50 ML(in water) 2 GM in Premix 1 BAG IVPB SCH (08:05)
[2024-05-04 08:42] LABS: Actual Bicarbonate (HCO3a) 23.1 mEq/L (22-28); Base Excess (BEa) -0.9 mEq/L (-2.0 to +3.0); CO2 Tension 35.9 mmHg (35.0-45.0); Calcium, Ionized (arterial) 1.06 mmol/L (1.12-1.30); Carboxyhemoglobin (COHb) 0.1 gm% (0.0-3.0); Hematocrit-ABG 29 % (42.0-52.0); O2 Tension (PaO2), arterial 113.9 mmHg (> 80.0); Potassium - ABG Lab 4.66 mmol/L (3.70-5.30); pH, Arterial 7.427 (7.35-7.45)
[2024-05-04] MEDS: Insulin Glargine 30 UNITS/0.3 ML VIAL SC SCH (08:42)
[2024-05-04 08:43] LABS: ALV-art Gradient 126.425 mmHg (0-20); Puncture Site Arterial Line
[2024-05-04] MEDS: Carvedilol 3.125 MG TAB PO SCH ×2 (11:06→16:53)
[2024-05-04] MEDS: Aspirin 325 MG TAB PO SCH (11:07)
[2024-05-04] MEDS: Polyethylene Glycol 3350 17 GM Packet PO SCH (13:56)
[2024-05-04] MEDS: Heparin 5,000 UNITS/ML VIAL SC SCH (16:52)
[2024-05-04] MEDS ORDERED: Carvedilol 3.125 MG TAB PO SCH (17:00)
[2024-05-04] MEDS: Senokot S 8.6-50 MG TAB PO SCH (20:08)
[2024-05-04] MEDS: EPOETIN ALFA-EPBX (ESRD) 10,000 UNITS/ML VIAL SC SCH (20:09)
[2024-05-04] MEDS: Promethazine HCl 25 MG/ML VIAL IM PRN (20:20)
[2024-05-04] MEDS: Insulin Regular, Human 100 UNIT/ML 10 ML VIAL SC PRN (20:21)
[2024-05-05 06:17] LABS: #Basophils 0.06 10x3/uL (0.0-0.2); %Basophils 0.8 % (0.0-1.0); %Eosinophils 8.8 % (0.0-10.0); %Lymphocytes 9.8 % (21.0-51.0); %Monocytes 8.4 % (0.0-10.0); %Neutrophils 71.8 % (42.0-75.0); Hematocrit 24.6 % (42.0-52.0); Hemoglobin 7.8 g/dL (14.0-18.0); Mean Corpuscular HGB CONC 31.7 g/dL (32.0-36.0); Mean Corpuscular Hemoglobin 30.1 pg (27.0-31.0); Platelet Count 173 10x3/uL (130-400); RBC Distribution Width 18.3 % (11.5-14.5); Red Blood Cell (RBC) Count 2.59 mill/uL (4.70-6.10)
[2024-05-05 06:29] LABS: Anion Gap 17 mmol/L (10-20); BUN (Urea Nitrogen) 41 mg/dL (8.4-25.7); Calc. Creatinine Clearance 14 mL/min (70-130); Calcium 7.9 mg/dL (7.8-10.44); Carbon Dioxide 24 mmol/L (23-31); Chloride 104 mmol/L (98-107); Estimated GFR 11; Glucose 99 mg/dL (80-115); Potassium 5.3 mmol/L (3.5-5.1); Sodium 140 mmol/L (136-145)
[2024-05-05] MEDS: Polyethylene Glycol 3350 17 GM Packet PO SCH (09:00)
[2024-05-05] MEDS ORDERED: Heparin 10,000 UNITS/ 10 ML VIAL ONE (10:56)
[2024-05-05] MEDS: Famotidine 20 MG TAB PO SCH (13:03)
[2024-05-05] MEDS: Amlodipine 5 MG TAB PO SCH (13:03)
[2024-05-05] MEDS: Magnesium 2 GM/50 ML(in water) 2 GM in Premix 1 BAG IVPB SCH (13:31)
[2024-05-05] MEDS: Melatonin 3 MG TAB PO PRN (22:03)
[2024-05-06 04:20] LABS: #Basophils 0.04 10x3/uL (0.0-0.2); %Basophils 0.7 % (0.0-1.0); %Eosinophils 16.6 % (0.0-10.0); %Lymphocytes 15.8 % (21.0-51.0); %Monocytes 10.5 % (0.0-10.0); %Neutrophils 55.7 % (42.0-75.0); Hematocrit 24.8 % (42.0-52.0); Hemoglobin 7.9 g/dL (14.0-18.0); Mean Corpuscular HGB CONC 31.9 g/dL (32.0-36.0); Mean Corpuscular Hemoglobin 30.5 pg (27.0-31.0); Mean Corpuscular Volume 95.8 fL (78.0-98.0); Mean Platelet Volume 11.6 fL (7.4-10.4); Platelet Count 175 10x3/uL (130-400); RBC Distribution Width 17.6 % (11.5-14.5); Red Blood Cell (RBC) Count 2.59 mill/uL (4.70-6.10)
[2024-05-06 04:38] LABS: Anion Gap 13 mmol/L (10-20); BUN (Urea Nitrogen) 24 mg/dL (8.4-25.7); Calc. Creatinine Clearance 21 mL/min (70-130); Calcium 7.6 mg/dL (7.8-10.44); Carbon Dioxide 28 mmol/L (23-31); Chloride 103 mmol/L (98-107); Estimated GFR 16; Glucose 161 mg/dL (80-115); Potassium 4.2 mmol/L (3.5-5.1); Sodium 140 mmol/L (136-145)
[2024-05-06] MEDS: HYDROcodone/Acetaminophen 5/325 mg Tablet PO PRN (10:31)
[2024-05-06] MEDS: Carvedilol 25 MG TAB PO SCH (10:34)
[2024-05-06 11:33] LABS: Cardiac Risk 3.9 (Less than 4.5)
[2024-05-06 15:06] VITALS: BMI 25.9
[2024-05-07] MEDS: hydrALAZINE 20 MG/ML VIAL SLOW IVP PRN (01:27)
[2024-05-07 03:55] LABS: #Basophils 0.04 10x3/uL (0.0-0.2); %Basophils 0.5 % (0.0-1.0); %Monocytes 10.4 % (0.0-10.0); %Neutrophils 60.3 % (42.0-75.0); Hematocrit 26.1 % (42.0-52.0); Hemoglobin 8.3 g/dL (14.0-18.0); Mean Corpuscular HGB CONC 31.8 g/dL (32.0-36.0); Mean Corpuscular Hemoglobin 30.6 pg (27.0-31.0); Mean Corpuscular Volume 96.3 fL (78.0-98.0); Mean Platelet Volume 11.6 fL (7.4-10.4); Platelet Count 209 10x3/uL (130-400); RBC Distribution Width 17.2 % (11.5-14.5); Red Blood Cell (RBC) Count 2.71 mill/uL (4.70-6.10)
[2024-05-07 05:34] LABS: Anion Gap 16 mmol/L (10-20); Chloride 103 mmol/L (98-107); Potassium 5.1 mmol/L (3.5-5.1); Sodium 139 mmol/L (136-145)
[2024-05-07 07:01] LABS: BUN (Urea Nitrogen) 41 mg/dL (8.4-25.7); Calc. Creatinine Clearance 13 mL/min (70-130); Calcium 7.8 mg/dL (7.8-10.44); Carbon Dioxide 25 mmol/L (23-31); Estimated GFR 10; Glucose 147 mg/dL (80-115)
[2024-05-07] MEDS ORDERED: Heparin 10,000 UNITS/ 10 ML VIAL ONE (10:31)
[2024-05-07 12:41] VITALS: TEMP 98.6
[2024-05-07 14:14] VITALS: BP 149/62
== END 2024-05-07 16:27 | disposition home or self-care (01) | DRG 233 ==
LOC: ERS 08:51 → IMCU/EMU 13:43 → 2NO 04-19 21:16 → CCU 04-26 06:29 → PCU 05-04 17:14
PROVIDERS: ADMIT Internal Medicine; ATTEND Internal Medicine
PROC: 4A023N7 Measurement of Cardiac Sampling and Pressure, Left Heart, Percutaneous Approach (ICD-10-PCS; 2024-04-22)
PROC: B2151ZZ Fluoroscopy of Left Heart using Low Osmolar Contrast (ICD-10-PCS; 2024-04-22)
PROC: B2111ZZ Fluoroscopy of Multiple Coronary Arteries using Low Osmolar Contrast (ICD-10-PCS; 2024-04-22)
PROC: 02100Z9 Bypass Coronary Artery, One Artery from Left Internal Mammary, Open Approach (ICD-10-PCS; principal; 2024-05-03)
PROC: 021109W Bypass Coronary Artery, Two Arteries from Aorta with Autologous Venous Tissue, Open Approach (ICD-10-PCS; 2024-05-03)
PROC: 06BQ4ZZ Excision of Left Saphenous Vein, Percutaneous Endoscopic Approach (ICD-10-PCS; 2024-05-03)
PROC: 02L70CK Occlusion of Left Atrial Appendage with Extraluminal Device, Open Approach (ICD-10-PCS; 2024-05-03)
PROC: 5A1221Z Performance of Cardiac Output, Continuous (ICD-10-PCS; 2024-05-03)
DX: I13.2 Hypertensive heart and chronic kidney disease with heart failure and with stage 5 chronic kidney disease, or end stage renal disease (principal); G93.41 Metabolic encephalopathy; I50.21 Acute systolic (congestive) heart failure; J96.01 Acute respiratory failure with hypoxia; I50.23 Acute on chronic systolic (congestive) heart failure; N18.6 End stage renal disease; J81.0 Acute pulmonary edema; E87.1 Hypo-osmolality and hyponatremia; E87.20 Acidosis, unspecified; N25.81 Secondary hyperparathyroidism of renal origin; I42.9 Cardiomyopathy, unspecified; I25.110 Atherosclerotic heart disease of native coronary artery with unstable angina pectoris; E11.649 Type 2 diabetes mellitus with hypoglycemia without coma; E87.5 Hyperkalemia; Z99.2 Dependence on renal dialysis; E11.22 Type 2 diabetes mellitus with diabetic chronic kidney disease; D63.1 Anemia in chronic kidney disease
CPT/HCPCS: 36415; 36416; 36430; 70450; 70496; 70498; 71045; 74175; 80048; 80053; 80061; 82533; 82805; 83525; 83735; 83880; 84484; 84681; 85014; 85018; 85025; 85049; 85610; 85730; 86850; 86900; 86901; 87633; 90935; 93005; 93010; 93306; 93458; 93459; 93798; 94002; 94003; 94150; 94640; 96374; 96375; 96376; 97139; A4311; A4648; C1751; C1894; G0257; J0171; J0360; J0665; J1100; J1611; J1642; J1644; J1815; J1885; J2003; J2060; J2150; J2250; J2260; J2354; J2405; J2440; J2550; J2704; J2720; J3010; J3370; J3475; J3480; J3490; J7030; J7042; J7050; J7611; J7620; J7999; P9016; P9045; P9047; Q5105; Q9967; S0017